=== PATIENT | male | born 1950 | race Caucasian/White ===

== ENCOUNTER 2016-10-17 04:03 | Inpatient (IN) | payer OTHER ==
[~2016-10-17] VITALS: Ht 177.8 cm; Wt 78.0 kg
[~2016-10-17 04:03] MED LIST: AMLO5TAB4 PO; ATOR20TA PO; DICL30AD3 PO; LEVO750T21 PO; LISI40TA4 PO; MORP15TA PO; POLY17PO4 PO; Valsartan PO; ZOLP5TAB2 PO
--- NOTE | 2016-10-17 04:10 | NUR ---
To bed 5 a 66 yo male bibra with c/o weakness and dizziness since he woke up. Patient is aaox3, reported to have been feeling numb on the left hand and face, and he "is too weak to walk." Patient appears anxious. Initiated comfort measures. tele monitoring in place. Gowned. at bedside for eval.
[2016-10-17] MEDS ORDERED: IV NS 0.9% 1,000 ML ONE ×2 (04:18→10:31)
[2016-10-17] MEDS ORDERED: IV SET PRIMARY 1 EA INFUS.SET MC ONE ×2 (04:18→10:31)
[2016-10-17] MEDS ORDERED: ONDANSETRON HCL/PF 4 MG/2 ML VIAL ONE (04:19)
[2016-10-17] MEDS ORDERED: LORAZEPAM INJ 2 MG/ML VIAL ONE (04:19)
[2016-10-17] MEDS ORDERED: MECLIZINE HCL 25 MG TABLET ONE (04:19)
[2016-10-17] MEDS ORDERED: LORAZEPAM INJ 2 MG/ML VIAL IV ONE (04:30)
[2016-10-17] MEDS ORDERED: ONDANSETRON HCL/PF 4 MG/2 ML VIAL IVP ONE (04:30)
[2016-10-17] MEDS ORDERED: IV NS 0.9% 1,000 ML BAG IV ONE ×2 (04:30→10:30)
[2016-10-17] MEDS ORDERED: MECLIZINE HCL 12.5 MG TABLET PO ONE (04:30)
--- NOTE | 2016-10-17 04:35 | NUR ---
Patient taken to ct.
[2016-10-17 04:56] LABS: BASOPHILS % (AUTO) 0.3 % (0.0-2.0); EOSINOPHILS # (AUTO) 0.1 /CMM (0.0-0.7); EOSINOPHILS % (AUTO) 0.8 % (0.0-6.0); HEMATOCRIT 42 % (39-51); HEMOGLOBIN 13.9 g/dL (13.5-17.5); LYMPHOCYTES # (AUTO) 3.3 /CMM (0.8-4.8); MEAN CORPUSCULAR HEMOGLOBIN 29 PG (26.0-33.0); MEAN CORPUSCULAR HGB CONC 33 g/dl (31.0-36.0); MEAN CORPUSCULAR VOLUME 87 fL (80-96); MONOCYTES # (AUTO) 1.3 /CMM (0.1-1.30); MONOCYTES % (AUTO) 11.3 % (2.0-12.0); NEUTROPHILS # (AUTO) 7.1 /CMM (1.8-8.9); NEUTROPHILS % (AUTO) 59.6 % (43.0-81.0); PLATELET COUNT (AUTO) 287 /CMM (150-450); RDW COEFFICIENT OF VARIATION 15.5 (11.5-15.0); RED BLOOD CELL COUNT(AUTO) 4.79 MIL/uL (4.5-6.0); WHITE BLOOD COUNT (AUTO) 11.9 K/uL (4.3-11.0)
[2016-10-17 05:06] LABS: INR 0.94 (0.87-1.13)
[2016-10-17 05:12] LABS: TROPONIN I < 0.017 ng/mL (0.00-0.056)
[2016-10-17 05:21] LABS: ALANINE AMINOTRANSFERASE 33 U/L (12-78); ALBUMIN 3.5 g/dL (3.4-5.0); ALKALINE PHOSPHATASE 74 U/L (46-116); ASPARTATE AMINOTRANSFERASE 18 U/L (15-37); BILIRUBIN,TOTAL 0.4 mg/dL (0.2-1.0); CALCIUM, SERUM 9.2 mg/dL (8.5-10.1); CREATININE 1.5 mg/dL (0.6-1.3); GLUCOSE 189 mg/dL (74-106); TOTAL PROTEIN, SERUM 7.4 g/dL (6.4-8.2); UREA NITROGEN, BLOOD 30 mg/dL (7-18)
[2016-10-17 05:26] LABS: CARBON DIOXIDE 25 mmol/L (21-32); CHLORIDE 103 mmol/L (98-107); SODIUM SERUM 141 mmol/L (136-145)
[2016-10-17 05:27] LABS: POTASSIUM 2.8 mmol/L (3.5-5.1)
[2016-10-17] MEDS ORDERED: POTASSIUM CHLORIDE 20 MEQ TAB.PRT.SR PO ONE ×2 (06:00→06:02)
--- NOTE | 2016-10-17 07:17 | NUR ---
patient is sleeping comfortably at this time. VSS.
--- NOTE | 2016-10-17 08:15 | NUR ---
Patient is resting comfortably in bed with eyes closed. Easily aroused. VSS
--- NOTE | 2016-10-17 09:00 | NUR ---
DR PHILIP QUAN
--- NOTE | 2016-10-17 09:11 | NUR ---
DR DAMIEN QUAN
--- NOTE | 2016-10-17 10:11 | NUR ---
TEXTED DR. PATINO FOR MRI APPROVAL.
--- NOTE | 2016-10-17 10:14 | NUR ---
PT ALERT, AWAKE AND ORIENTED. VSS.
[2016-10-17] MEDS ORDERED: LISI-603 PO (10:51)
[2016-10-17] MEDS ORDERED: ATOR80TA PO (10:51)
[2016-10-17] MEDS ORDERED: HYDR25TA4 PO (10:51)
[2016-10-17] MEDS ORDERED: ASPI81TA2 PO (10:51)
--- NOTE | 2016-10-17 11:07 | NUR ---
MORTGAGE LOAN CLOSER NOTES RECEIVED PATIENT FROM E.R. DEPARTMENT, UNDER THE CARE OF DR. QUEZADA, PATIENT STILL COMPLAINING OF DIZZINESS WHEN MOVING, AND BLURRY VISION. PATIENT PLACED ON TELE MONITOR, IVF FROM E.R. STILL INFUSING, PATIENT DENIES PAIN OR DISCOMFORT AT THIS TIME, SKIN DRY AND INTACT, ALL NEEDS ATTENDED, CALL LIGHT WITHIN REACH, WILL CONTINUE TO MONITOR.
[2016-10-17 12:00] VITALS: BP 146/79
--- NOTE | 2016-10-17 13:45 | NUR ---
SALES EXEC NOTES PATIENT WAS SEEN AND EXAMINED BY DR. QUEZADA [id number] STILL WAITING FOR ADMISSION ORDERS AT THIS TIME. PATIENT IS CURRENTLY AT RADIOLOGY FOR HIS MRA.
--- NOTE | 2016-10-17 14:50 | NUR ---
VISUALIZER NOTES PATIENT JUST CAME BACK FROM MRI. IN STABLE CONDITION.
[2016-10-17] MEDS: ASPIRIN EC 325 MG TABLET.DR PO SCH (15:27)
[2016-10-17 16:00] VITALS: BP 136/69
[2016-10-17] MEDS ORDERED: ACYC400T PO (18:17)
--- NOTE | 2016-10-17 18:49 | NUR ---
BATH MIX OPERATOR NOTES PATIENT IN BED, ALERT AND ORIENTED, STILL PREFERS TO HAVE HIS EYES CLOSED DUE TO DOUBLE VISION, PATIENT STILL COMPLAINING OF DIZZINESS WHEN HE MOVES, DISCUSSED HOME MEDS WITH DR. QUEZADA WITH ORDERS TO CONTINUE, BUT TO KEEP ASA 325MG AND LIPITOR 80MG, PATIENT ADDED ACYCLOVIR AND MD ALSO AGREED TO CONTINUE, ORDERS NOTED AND CARRIED OUT, CALL LIGHT PLACED WITHIN REACH, WILL ENDORSE TO HEARING AID MECHANIC FOR SILAS.
--- NOTE | 2016-10-17 19:15 | NUR ---
CUPOLA MELTER NOTES RECEIVED ON BED A/O X4,NO SOB,TO CONSUME IVF INFUSING ON RIGHT AC VIA IV PUMP,ENCOURAGED TO EAT DINNER FOOD.CLAIMED SHE STILL FEELING DIZZY WHEN HE MOVES,SITTING UP.ENCOURAGED TO USE CALL LIGHT FOR ASSISTANCE.WILL CONTINUE TO MONITOR STATUS.
[2016-10-17 20:00] VITALS: BP_SYST 148; BP_SYST 155; BP_DIAS 87
[2016-10-17 20:15] VITALS: BP 148/89
[2016-10-17] MEDS: ATORVASTATIN 40 MG TABLET PO SCH (21:12)
[2016-10-17] MEDS: LISINOPRIL (20MG) 20 MG TABLET PO SCH (21:13)
[2016-10-17 21:17] LABS: APPEARANCE,URINE CLEAR (CLEAR); BILIRUBIN,URINE NEGATIVE (NEGATIVE); BLOOD, URINE TRACE Ery/uL (NEGATIVE); COLOR,URINE YELLOW (YELLOW); KETONES,URINE NEGATIVE (NEGATIVE); LEUKOCYTE ESTERASE ,URINE NEGATIVE (NEGATIVE); NITRITE, URINE NEGATIVE (NEGATIVE); PROTEIN,URINE NEGATIVE (NEGATIVE); UGLUCOSE NEGATIVE (NEGATIVE); UROBILINOGEN,URINE 0.2 EU/dL (0.2)
[2016-10-17 21:25] LABS: BACTERIA,URINE None seen /HPF (None Seen); RBC,URINE 0-2 /HPF (0-2); SQUAMOUS EPITHELIAL CELL,UR None Seen /HPF (None Seen); WBC,URINE 0-2 /HPF (0-3)
--- NOTE | 2016-10-17 21:30 | NUR ---
CATERERS HELPER NOTES BP 148/89.LISINOPRIL 20MG PO GIVEN,ALONG WITH LIPITOR 80MG PO ORDERED.
[2016-10-17] MEDS ORDERED: ATORVASTATIN 40 MG TABLET PO SCH ×2 (22:00)
[2016-10-18] VITALS (8 sets, daily range): BP systolic 114–141; BP diastolic 52–90
--- NOTE | 2016-10-18 01:00 | NUR ---
MS RN NOTES SLEEPING AT THIS TIME,KEPT WARM AND COMFORTABLE.
--- NOTE | 2016-10-18 06:35 | NUR ---
ADMISSIONS SPECIALIST NOTES SLEPT WELL AT [facility],DIZZINESS EPISODE WHEN HE GETS UP FROM BED.BLOOD PRESSURE WITH IN NORMAL LIMITS.NOT IN ANY FORM OF DISTRESS,NEEDS ATTENDED.WILL ENDORSE TO DAY NURSE FOR SILAS.
--- NOTE | 2016-10-18 07:30 | NUR ---
MS RN RECEIVE DON BED, AWAKE,ALERT,ORIENTED X4,NOT IN ANY FORM OF DISTRESS, RESPIRATIONS EVEN AND UNLABORED,NO SOB NOTED, LUNGS ARE CLEAR,ABDOMEN SOFT,POSITIVE BOWEL SOUNDS, DENIES PAIN AT THIS TIME, WILL MONITOR PATIENT.
[2016-10-18 08:21] LABS: CHOLESTEROL 223 mg/dL (<200); HDL CHOLESTEROL 39 mg/dL (40-60); LDL 149 mg/dL (0-99); TRIGLYCERIDES 136 mg/dL (30-150)
[2016-10-18] MEDS ORDERED: ACYCLOVIR 200 MG CAPSULE PO PRN (09:00)
[2016-10-18] MEDS ORDERED: LISINOPRIL (20MG) 20 MG TABLET PO SCH (09:00)
--- NOTE | 2016-10-18 09:30 | NUR ---
MS RN WAS SEEN BY DR. PHILIP Richey/ ORDERS MADE AND CARRIED OUT.
[2016-10-18] MEDS: POTASSIUM CHLORIDE 20 MEQ TAB.PRT.SR PO SCH (09:47)
[2016-10-18] MEDS: LISINOPRIL (20MG) 20 MG TABLET PO SCH (09:49)
[2016-10-18] MEDS: HYDROCHLOROTHIAZIDE 25 MG TABLET PO SCH (09:49)
[2016-10-18] MEDS: ASPIRIN EC 325 MG TABLET.DR PO SCH (09:50)
--- NOTE | 2016-10-18 17:30 | NUR ---
MS RN WALKING ON HALLWAY,NO DISTRESS NOTED.
--- NOTE | 2016-10-18 19:30 | NUR ---
ELECTRONIC NEWS GATHERING EDITOR - INITIAL NOTES RECEIVED PATIENT FROM DAY NURSE. PATIENT IS ALERT AND ORIENTED X4. NO S/S OF SOB OR ANY DISCOMFORT NOTED. PATIENT WITH STEADY GAIT AND USES THE WALKER. DENIES ANY PAIN. NO SIGNIFICANT CHANGES NOTED. CALL LIGHT IS WITHIN REACH. WILL CONTINUE TO MONITOR PATIENT.
[2016-10-18] MEDS: ATORVASTATIN 40 MG TABLET PO SCH (21:15)
[2016-10-19] VITALS: BP 132/83
[2016-10-19 04:00] VITALS: BP 134/81
--- NOTE | 2016-10-19 06:38 | NUR ---
AUTOMOBILE CARPETS MOLDER - ENDING NOTES PATIENT REMAINS STABLE. SLEPT MOST OF THE NIGHT. TELE READING OF SR 61. BED IN LOW POSITION AND LOCKED. SIDERAILS X2 UP. NO SIGNIFICANT CHANGES NOTED AT THIS TIME. WILL ENDORSE TO MORNING NURSE FOR CONTINUITY OF CARE.
[2016-10-19 08:00] VITALS: BP 141/96
--- NOTE | 2016-10-19 08:00 | NUR ---
ASLEEP BUT AROUSABLE; A/0 X3; R EYE PATCH IN PLACE; STILL STATES DOUBLE VISION; DENIES ANY PAIN; WILL CONTINUE TO MONITOR.
[2016-10-19] MEDS: LISINOPRIL (20MG) 20 MG TABLET PO SCH (08:15)
[2016-10-19] MEDS: HYDROCHLOROTHIAZIDE 25 MG TABLET PO SCH (08:15)
[2016-10-19] MEDS: ASPIRIN EC 325 MG TABLET.DR PO SCH (08:15)
[2016-10-19] MEDS: POTASSIUM CHLORIDE 20 MEQ TAB.PRT.SR PO SCH (08:16)
--- NOTE | 2016-10-19 10:13 | NUR ---
RN NOTES; PATIENT AMBULATED IN HALLS WITH WALKER; STEADY BALANCED GAIT; SITTING UP IN CHAIR; EYE PATCH ROTATED TO L EYE; NO ACUTE DISTRESS AT THIS TIME; WILL CONTINUE TO MONITOR.
[2016-10-19 16:00] VITALS: BP 126/86
[2016-10-19] MEDS: SPIRONOLACTONE 25 MG TABLET PO SCH (16:08)
--- NOTE | 2016-10-19 16:12 | NUR ---
RN NOTES patient dangling at bedside; R eye patch in place; denies any discomfort at this time; will continue to monitor.
--- NOTE | 2016-10-19 18:00 | NUR ---
patient ambulating in halls with walker; steady balanced gait; denies any distress or discomfort; will inform PM nurse.
--- NOTE | 2016-10-19 19:30 | NUR ---
MS/NUCLEAR SPECTROSCOPIST; RECEIVED PT IN THE BATHROOM SAID VOIDED. NOTED WITH EYE PATCH ON RT EYE. HE SAID HE ALTERNATELY COVER HIS EYES WITH EYE PATCH. NO DOUBLE VISION AT THIS TIME.DENIES PAIN. HL IS OUT AND I TOLD THE PT I WILL REMOVE IT AND WILL PUT NEW IV LINE. BED ON LOWER POSITION AND LOCKED FOR SAFETY. SIDE RAILS UPPER PART OF BED UP FOR SAFETY. PT INSTRUCTED TO CALL FOR HELP AND CALL LIGHT WITHIN REACH.
[2016-10-19 20:00] VITALS: BP 125/85
--- NOTE | 2016-10-19 21:00 | NUR ---
MS/ELECTRIC METER INSPECTOR; NEW HL INSERTED ON LWA # 20 ANGIO CATH.
[2016-10-19] MEDS: ATORVASTATIN 40 MG TABLET PO SCH (21:29)
--- NOTE | 2016-10-20 07:00 | NUR ---
MS/OTHER SALES SUPPORT WORKER; PT SLEEP GOOD LAST NIGHT / SNORING. DENIES ANY PAIN. NO DIZZINESS NOR DOUBLE VISION. BREATHING NON LABORED. CONTINUE TO MONITOR. CALL LIGHT WITHIN REACH. WILL ENDORSE TO THE DAY SHIFT NURSE.
--- NOTE | 2016-10-20 07:30 | NUR ---
MS RN RECEIVED ON BED, AWAKE,ALERT,ORIENTED X4,NOT IN ANY FORM OF DISTRESS, RESPIRATIONS EVEN AND UNLABORED,NO SOB NOTED, PATIENT STILL WEARING EYE PATCH AT THIS TIME, ALL NEEDS ATTENDED.
[2016-10-20 08:00] VITALS: BP 124/70
--- NOTE | 2016-10-20 08:30 | NUR ---
MS CHU BREAKFAST SERVED DUE MEDS GIVEN,TOLERATED WELL.
[2016-10-20 09:31] VITALS: BP 124/70
[2016-10-20] MEDS: ASPIRIN EC 325 MG TABLET.DR PO SCH (09:31)
[2016-10-20] MEDS: SPIRONOLACTONE 25 MG TABLET PO SCH (09:31)
[2016-10-20] MEDS: LISINOPRIL (20MG) 20 MG TABLET PO SCH (09:31)
[2016-10-20] MEDS: POTASSIUM CHLORIDE 20 MEQ TAB.PRT.SR PO SCH (09:31)
--- NOTE | 2016-10-20 11:05 | NUR ---
MS RN RECEIVED A CALL FROM DR. QUEZADA'S OFFICE W/ ORDER TO DISCHARGE PATIENT HOME TODAY.
--- NOTE | 2016-10-20 14:00 | NUR ---
ms rn patient went off accompanied by neighbor, all needs attended.
== END 2016-10-20 14:40 | disposition home or self-care (01) | DRG 45 ==
LOC: ER 04:05 → TELE 10:54 → MED 10-19 10:43
PROVIDERS: ADMIT Internal Medicine; ATTEND Internal Medicine
DX: I63.8 Other cerebral infarction (principal); E66.01 Morbid (severe) obesity due to excess calories; N18.3 Chronic kidney disease, stage 3 (moderate); E78.5 Hyperlipidemia, unspecified; I12.9 Hypertensive chronic kidney disease with stage 1 through stage 4 chronic kidney disease, or unspecified chronic kidney disease; E26.9 Hyperaldosteronism, unspecified; I25.10 Atherosclerotic heart disease of native coronary artery without angina pectoris; R73.03 Prediabetes; Z79.899 Other long term (current) drug therapy; Z82.3 Family history of stroke; Z85.51 Personal history of malignant neoplasm of bladder; Z88.0 Allergy status to penicillin; M19.90 Unspecified osteoarthritis, unspecified site; Z68.24 Body mass index [BMI] 24.0-24.9, adult; H53.2 Diplopia
CPT/HCPCS: 36415; 70450-TC; 70544-TC; 70547-TC; 70551-TC; 80048-TC; 80061-TC; 80076-TC; 80305; 81000-TC; 83735-TC; 84443-TC; 84484-TC; 85025-TC; 85652-TC; 85730-TC; 86592; 87081-TC; 93307-TC; 97001-TC; A4606; J2060; J2405; J7030; J8597; Z7610

== ENCOUNTER 2018-05-22 15:54 | Emergency (ER) | payer MEDICARE, OTHER ==
[~2018-05-22] VITALS: Ht 185.4 cm; Wt 99.8 kg
[~2018-05-22 15:54] MED LIST changes: +ACYC400T PO; -AMLO5TAB4 PO; +ASPI-1169 PO; -ATOR20TA PO; +ATOR80TA PO; -DICL30AD3 PO; +HYDR25TA4 PO; -LEVO750T21 PO; +LISI-603 PO; -LISI40TA4 PO; -MORP15TA PO; -POLY17PO4 PO; -Valsartan PO; -ZOLP5TAB2 PO
[2018-05-22] MEDS ORDERED: IV NS 0.9% 1,000 ML BAG IV ONE ×2 (16:30→17:30)
[2018-05-22 16:45] LABS: BASOPHILS # (AUTO) 0.2 /CMM (0.0-0.2); BASOPHILS % (AUTO) 1.3 % (0.0-2.0); EOSINOPHILS % (AUTO) 0.2 % (0.0-6.0); HEMATOCRIT 46 % (39-51); HEMOGLOBIN 15.5 g/dL (13.5-17.5); LYMPHOCYTES % (AUTO) 16.1 % (20.0-44.0); MEAN CORPUSCULAR HGB CONC 34 g/dl (31.0-36.0); MEAN CORPUSCULAR VOLUME 95 fL (80-96); MONOCYTES # (AUTO) 0.9 /CMM (0.1-1.30); MONOCYTES % (AUTO) 7.7 % (2.0-12.0); NEUTROPHILS # (AUTO) 9.2 /CMM (1.8-8.9); NEUTROPHILS % (AUTO) 74.7 % (43.0-81.0); PLATELET COUNT (AUTO) 205 /CMM (150-450); RED BLOOD CELL COUNT(AUTO) 4.77 MIL/uL (4.5-6.0); WHITE BLOOD COUNT (AUTO) 12.3 K/uL (4.3-11.0)
[2018-05-22 16:52] LABS: CALCIUM, SERUM 9.6 mg/dL (8.5-10.1); CARBON DIOXIDE 28 mmol/L (21-32); CHLORIDE 102 mmol/L (98-107); CREATININE 2.1 mg/dL (0.6-1.3); GLUCOSE 87 mg/dL (74-106); POTASSIUM 3.9 mmol/L (3.5-5.1); SODIUM SERUM 140 mmol/L (136-145); UREA NITROGEN, BLOOD 61 mg/dL (7-18)
[2018-05-22 16:57] LABS: ALANINE AMINOTRANSFERASE 26 U/L (12-78); ALBUMIN 3.6 g/dL (3.4-5.0); ALKALINE PHOSPHATASE 65 U/L (46-116); ASPARTATE AMINOTRANSFERASE 17 U/L (15-37); BILIRUBIN,DIRECT 0.3 mg/dL (0.0-0.2); BILIRUBIN,TOTAL 1.3 mg/dL (0.2-1.0); TOTAL PROTEIN, SERUM 7.4 g/dL (6.4-8.2)
--- NOTE | 2018-05-22 16:58 | NUR ---
PT BIB RA C/O PRE-SYNCOPE PULPING MACHINE OPERATOR S/P SWIMMING. PT STATES HE GOT DIZZY AND FEELS LIKE HE WAS GOING TO PASS OUT BUT DID NOT LOSE CONSCIOUSNESS. NO TRAUMA NOTED. RESP EVEN UNLABORED. PERRLA. NO NEURO DEFICITS. PT STATES HE CALLED HIS PMD AND PMD TOLD HIM TO COME D/T HYPOTENSION AND DIZZINESS. SKIN WARM DRY. IN ER BED 15 ON MONITOR.
--- NOTE | 2018-05-22 17:55 | NUR ---
RESTING QUIETLY, NAD NOTED. WILL DC AFTER SECOND IV BOLUS COMPLETES.
--- NOTE | 2018-05-22 19:14 | NUR ---
DPatient discharged to home in stable condition. Written and verbal after care instructions given. Patient verbalizes understanding of instruction. IV removed. Catheter intact and site benign. Pressure and 4x4 applied to site. No bleeding noted.
[2018-05-22 19:15] VITALS: BP 124/71
== END 2018-05-22 19:15 | disposition home or self-care (01) ==
LOC: ER 15:55
DX: E86.0 Dehydration (principal); N28.9 Disorder of kidney and ureter, unspecified; I10 Essential (primary) hypertension; R42 Dizziness and giddiness; Z86.73 Personal history of transient ischemic attack (TIA), and cerebral infarction without residual deficits; Z85.51 Personal history of malignant neoplasm of bladder; Z85.54 Personal history of malignant neoplasm of ureter; Z90.5 Acquired absence of kidney; Z88.0 Allergy status to penicillin; Z79.82 Long term (current) use of aspirin
CPT/HCPCS: 36415; 70450; 71045; 80048; 80076; 84484; 85025; 93005; 96360; 96361; 99284; A4606; J7030 ×2; Z7610

== ENCOUNTER 2019-11-13 11:26 | Outpatient (CLI) | payer MEDICARE, OTHER ==
[2019-11-13 13:53] LABS: APPEARANCE,URINE SL CLOUDY (CLEAR); BASOPHILS % (AUTO) 0.4 % (0.0-2.0); BILIRUBIN,URINE NEGATIVE (NEGATIVE); BLOOD, URINE SMALL Ery/uL (NEGATIVE); COLOR,URINE YELLOW (YELLOW); EOSINOPHILS % (AUTO) 0.1 % (0.0-6.0); HEMATOCRIT 47 % (39-51); HEMOGLOBIN 15.5 g/dL (13.5-17.5); KETONES,URINE NEGATIVE (NEGATIVE); LEUKOCYTE ESTERASE ,URINE NEGATIVE (NEGATIVE); LYMPHOCYTES # (AUTO) 2.1 /CMM (0.8-4.8); LYMPHOCYTES % (AUTO) 24.6 % (20.0-44.0); MEAN CORPUSCULAR HGB CONC 33 g/dl (31.0-36.0); MEAN CORPUSCULAR VOLUME 94 fL (80-96); MONOCYTES # (AUTO) 0.9 /CMM (0.1-1.30); MONOCYTES % (AUTO) 10.7 % (2.0-12.0); NEUTROPHILS # (AUTO) 5.6 /CMM (1.8-8.9); NEUTROPHILS % (AUTO) 64.2 % (43.0-81.0); NITRITE, URINE NEGATIVE (NEGATIVE); PH,URINE 5.5 (5.0-8.0); PLATELET COUNT (AUTO) 206 /CMM (150-450); PROTEIN,URINE NEGATIVE (NEGATIVE); RED BLOOD CELL COUNT(AUTO) 4.96 MIL/uL (4.5-6.0); UGLUCOSE NEGATIVE (NEGATIVE); UROBILINOGEN,URINE 0.2 EU/dL (0.2); WHITE BLOOD COUNT (AUTO) 8.7 K/uL (4.3-11.0)
[2019-11-13 14:54] LABS: ALBUMIN 3.9 g/dL (3.4-5.0); BILIRUBIN,TOTAL 0.6 mg/dL (0.2-1.0); CALCIUM, SERUM 9.8 mg/dL (8.5-10.1); CREATININE 1.6 mg/dL (0.6-1.3); POTASSIUM 4.5 mmol/L (3.5-5.1)
[2019-11-13 15:10] LABS: BACTERIA,URINE None seen /HPF (None Seen); SQUAMOUS EPITHELIAL CELL,UR Few /HPF (None Seen); WBC,URINE 0-2 /HPF (0-3)
== END 2019-11-13 23:59 | disposition home or self-care (01) ==
LOC: LAB 11:26
PROVIDERS: ATTEND Internal Medicine
DX: Z01.812 Encounter for preprocedural laboratory examination (principal); M46.04 Spinal enthesopathy, thoracic region
CPT/HCPCS: 36415; 71046; 80053-TC; 81000-TC; 85025-TC; 85610-TC; 85730-TC

== ENCOUNTER 2020-10-19 11:21 | Outpatient (CLI) | payer MEDICARE, OTHER ==
[~2020-10-19 11:21] MED LIST changes: -ACYC400T PO; +ACYC400T19 PO; -LISI-603 PO; +LISI20TA30 PO
[2020-10-19 13:18] LABS: BASOPHILS % (AUTO) 0.4 % (0.0-2.0); EOSINOPHILS % (AUTO) 0.6 % (0.0-6.0); HEMATOCRIT 50 % (39-51); HEMOGLOBIN 16.8 g/dL (13.5-17.5); LYMPHOCYTES # (AUTO) 1.9 /CMM (0.8-4.8); LYMPHOCYTES % (AUTO) 22.8 % (20.0-44.0); MEAN CORPUSCULAR HGB CONC 33 g/dl (31.0-36.0); MEAN CORPUSCULAR VOLUME 96 fL (80-96); MONOCYTES % (AUTO) 11.8 % (2.0-12.0); NEUTROPHILS # (AUTO) 5.3 /CMM (1.8-8.9); NEUTROPHILS % (AUTO) 64.4 % (43.0-81.0); PLATELET COUNT (AUTO) 205 /CMM (150-450); RED BLOOD CELL COUNT(AUTO) 5.24 MIL/uL (4.5-6.0); WHITE BLOOD COUNT (AUTO) 8.3 K/uL (4.3-11.0)
[2020-10-19 13:36] LABS: BILIRUBIN,URINE NEGATIVE (NEGATIVE); COLOR,URINE STRAW (YELLOW); LEUKOCYTE ESTERASE ,URINE NEGATIVE (NEGATIVE); NITRITE, URINE NEGATIVE (NEGATIVE); PH,URINE 6.5 (5.0-8.0); PROTEIN,URINE NEGATIVE (NEGATIVE); UGLUCOSE NEGATIVE (NEGATIVE); UROBILINOGEN,URINE 0.2 EU/dL (0.2)
[2020-10-19 13:48] LABS: BACTERIA,URINE Rare /HPF (None Seen); RBC,URINE 0-3 /HPF (0-2); SQUAMOUS EPITHELIAL CELL,UR Rare /HPF (None Seen); WBC,URINE 0-2 /HPF (0-3)
[2020-10-19 14:03] LABS: ALBUMIN 3.8 g/dL (3.4-5.0); BILIRUBIN,TOTAL 0.5 mg/dL (0.2-1.0); CALCIUM, SERUM 9.8 mg/dL (8.5-10.1); CREATININE 1.4 mg/dL (0.6-1.3); POTASSIUM 4.5 mmol/L (3.5-5.1); TOTAL PROTEIN, SERUM 7.6 g/dL (6.4-8.2)
== END 2020-10-19 23:59 | disposition home or self-care (01) ==
LOC: LAB 11:21
PROVIDERS: ATTEND Internal Medicine
DX: Z01.818 Encounter for other preprocedural examination (principal); R79.89 Other specified abnormal findings of blood chemistry; R79.1 Abnormal coagulation profile; R82.90 Unspecified abnormal findings in urine; R68.89 Other general symptoms and signs; M17.11 Unilateral primary osteoarthritis, right knee; M47.814 Spondylosis without myelopathy or radiculopathy, thoracic region; I49.3 Ventricular premature depolarization
CPT/HCPCS: 36415; 71046; 80053-TC; 81001; 85025-TC; 85610-TC; 85730-TC

== ENCOUNTER 2022-04-23 11:19 | Emergency (ER) | payer MEDICARE, OTHER ==
[~2022-04-23] VITALS: Ht 185.4 cm; Wt 113.4 kg
--- NOTE | 2022-04-23 11:30 | NUR ---
R thigh pain w/ noted swelling x 1 week s/p im testosterone injection. Patient is AAOX4. Able to make needs known. Placed comfortably in bed. Vitals checked.
--- NOTE | 2022-04-23 11:49 | NUR ---
Seen by Dr Rodriguez at bedside
[2022-04-23 12:04] VITALS: BP 146/88
--- NOTE | 2022-04-23 12:04 | NUR ---
Patient discharged to home in stable condition. Written and verbal after care instructions given. Patient verbalizes understanding of instruction.
== END 2022-04-23 12:06 | disposition home or self-care (01) ==
LOC: ER 11:22
DX: S70.11XA Contusion of right thigh, initial encounter (principal); I10 Essential (primary) hypertension; M19.90 Unspecified osteoarthritis, unspecified site; Z90.5 Acquired absence of kidney; Z88.0 Allergy status to penicillin; Z60.2 Problems related to living alone; Z79.899 Other long term (current) drug therapy; X58.XXXA Exposure to other specified factors, initial encounter; Y93.89 Activity, other specified; Y92.89 Other specified places as the place of occurrence of the external cause; Y99.8 Other external cause status

== ENCOUNTER 2022-07-11 11:22 | Outpatient (CLI) | payer MEDICARE, OTHER | END 2022-07-11 23:59 | disposition home or self-care (01) | LOC: RAD 11:22 | PROVIDERS: ATTEND Internal Medicine | DX: Z01.818 Encounter for other preprocedural examination (principal) | CPT/HCPCS: 71045-TC ==

== ENCOUNTER → 2022-07-18 | Outpatient (CLI) | payer MEDICARE, OTHER ==
[2022-07-18 14:54] LABS: CALCIUM, SERUM 9.3 mg/dL (8.5-10.1); CREATININE 1.5 mg/dL (0.6-1.3); POTASSIUM 4.5 mmol/L (3.5-5.1)
== END | disposition home or self-care (01) ==
LOC: LAB 13:32
PROVIDERS: ATTEND Internal Medicine
DX: Z01.812 Encounter for preprocedural laboratory examination (principal)
CPT/HCPCS: 36415; 80048-TC

== ENCOUNTER 2022-10-12 15:31 | Emergency (ER) | payer MEDICARE, OTHER ==
[~2022-10-12] VITALS: Ht 185.4 cm; Wt 119.3 kg
[2022-10-12] MEDS ORDERED: IOHEXOL-350 100 ML VIAL IV ONE (15:52)
[2022-10-12] MEDS ORDERED: CT SWABBABLE VALVE TRANS SET 1 EA INFUS.SET MC ONE (15:53)
[2022-10-12] MEDS ORDERED: IV NS 0.9% 250 ML IV ONE (15:53)
[2022-10-12 15:58] LABS: BASOPHILS # (AUTO) 0.1 K/uL (0.0-0.2); BASOPHILS % (AUTO) 0.6 % (0.0-2.0); EOSINOPHILS % (AUTO) 0.3 % (0.0-6.0); HEMATOCRIT 39 % (39-51); HEMOGLOBIN 12.6 g/dL (13.5-17.5); LYMPHOCYTES # (AUTO) 1.9 K/uL (0.8-4.8); LYMPHOCYTES % (AUTO) 21.9 % (20.0-44.0); MEAN CORPUSCULAR HGB CONC 33 g/dl (31.0-36.0); MEAN CORPUSCULAR VOLUME 93 fL (80-96); MONOCYTES # (AUTO) 0.8 K/uL (0.1-1.30); NEUTROPHILS # (AUTO) 5.9 K/uL (1.8-8.9); NEUTROPHILS % (AUTO) 68.2 % (43.0-81.0); PLATELET COUNT (AUTO) 242 K/uL (150-450); RED BLOOD CELL COUNT(AUTO) 4.14 MIL/uL (4.5-6.0); WHITE BLOOD COUNT (AUTO) 8.7 K/uL (4.3-11.0)
[2022-10-12] MEDS ORDERED: IV NS 0.9% 1,000 ML BAG IV ONE (16:00)
[2022-10-12 16:16] LABS: ALANINE AMINOTRANSFERASE 38 U/L (12-78); ALBUMIN 3.8 g/dL (3.4-5.0); ALKALINE PHOSPHATASE 96 U/L (46-116); ASPARTATE AMINOTRANSFERASE 29 U/L (15-37); BILIRUBIN,DIRECT 0.2 mg/dL (0.0-0.2); BILIRUBIN,TOTAL 0.6 mg/dL (0.2-1.0); CALCIUM, SERUM 9.4 mg/dL (8.5-10.1); CARBON DIOXIDE 25 mmol/L (21-32); CHLORIDE 101 mmol/L (98-107); CREATININE 2.2 mg/dL (0.6-1.3); GLUCOSE 111 mg/dL (74-106); SODIUM SERUM 137 mmol/L (136-145); TOTAL PROTEIN, SERUM 7.1 g/dL (6.4-8.2); UREA NITROGEN, BLOOD 42 mg/dL (7-18)
--- NOTE | 2022-10-12 16:45 | NUR ---
pt returned from CT. Fluids started on RAC 20g
--- NOTE | 2022-10-12 16:45 | NUR ---
Gene for Tele Neuro to see pt
[2022-10-12 19:36] VITALS: BP 114/67
== END 2022-10-12 19:39 | disposition home or self-care (01) ==
LOC: ER 15:51
DX: H53.8 Other visual disturbances (principal); N18.9 Chronic kidney disease, unspecified; E86.0 Dehydration; R42 Dizziness and giddiness; Z86.73 Personal history of transient ischemic attack (TIA), and cerebral infarction without residual deficits; I10 Essential (primary) hypertension; Z98.890 Other specified postprocedural states; Z88.0 Allergy status to penicillin; Z60.2 Problems related to living alone; Z79.82 Long term (current) use of aspirin; Z79.899 Other long term (current) drug therapy
CPT/HCPCS: 99285; 70498; 96360; 71045; 96361; 93005; 70496; 85025; 80048; 83605 ×2; 80076; 36415; 84484 ×2; 85730; 86850; 82962; 70450; J7030; J7050; Q9967

== ENCOUNTER 2023-08-13 12:19 | Emergency (ER) | payer MEDICARE, OTHER ==
[~2023-08-13] VITALS: Ht 185.4 cm; Wt 59.9 kg
[2023-08-13 12:29] VITALS: BP 110/97; TEMP 98.7; O2SAT 95
[2023-08-13] MEDS ORDERED: QUET25TA PO (13:15)
[2023-08-13] MEDS ORDERED: DIVA-76 PO (13:15)
[2023-08-13] MEDS ORDERED: MESA1.2T3 PO (13:15)
[2023-08-13] MEDS ORDERED: MIRT-90 PO (13:15)
[2023-08-13] MEDS ORDERED: MELA5TAB PO (13:15)
[2023-08-13 13:31] LABS: BASOPHILS # (AUTO) 0.1 K/uL (0.0-0.2); BASOPHILS % (AUTO) 0.6 % (0.0-2.0); EOSINOPHILS % (AUTO) 0.4 % (0.0-6.0); HEMATOCRIT 39 % (39-51); LYMPHOCYTES # (AUTO) 2.7 K/uL (0.8-4.8); LYMPHOCYTES % (AUTO) 24.2 % (20.0-44.0); MEAN CORPUSCULAR HEMOGLOBIN 32 PG (26.0-33.0); MEAN CORPUSCULAR HGB CONC 33 g/dl (31.0-36.0); MEAN CORPUSCULAR VOLUME 97 fL (80-96); MONOCYTES # (AUTO) 0.9 K/uL (0.1-1.30); MONOCYTES % (AUTO) 8.3 % (2.0-12.0); NEUTROPHILS # (AUTO) 7.3 K/uL (1.8-8.9); NEUTROPHILS % (AUTO) 66.5 % (43.0-81.0); PLATELET COUNT (AUTO) 410 K/uL (150-450); RED BLOOD CELL COUNT(AUTO) 4.03 MIL/uL (4.5-6.0); RED CELL DISTRIBUTION WIDTH 13.9 % (11.5-15.0)
[2023-08-13 13:36] LABS: APPEARANCE,URINE CLEAR (CLEAR); BILIRUBIN,URINE NEGATIVE (NEGATIVE); BLOOD, URINE NEGATIVE Ery/uL (NEGATIVE); COLOR,URINE YELLOW (YELLOW); KETONES,URINE TRACE mg/dL (NEGATIVE); LEUKOCYTE ESTERASE ,URINE NEGATIVE (NEGATIVE); NITRITE, URINE NEGATIVE (NEGATIVE); PH,URINE 6.5 (5.0-8.0); PROTEIN,URINE NEGATIVE (NEGATIVE); UGLUCOSE NEGATIVE (NEGATIVE); UROBILINOGEN,URINE 0.2 EU/dL (0.2)
[2023-08-13 13:40] LABS: ADD URINE CULTURE NO; BACTERIA,URINE Rare /HPF (None Seen); RBC,URINE 0-2 /HPF (0-2); SQUAMOUS EPITHELIAL CELL,UR Few /HPF (None Seen); WBC,URINE 0-2 /HPF (0-3)
[2023-08-13 13:41] LABS: CALCIUM, SERUM 8.9 mg/dL (8.5-10.1); CARBON DIOXIDE 32 mmol/L (21-32); CHLORIDE 98 mmol/L (98-107); CREATININE 0.7 mg/dL (0.6-1.3); GLUCOSE 113 mg/dL (74-106); INR 1.08 (0.91-1.10); PARTIAL THROMBOPLASTIN TIME 29.3 SEC (24.3-34.3); POTASSIUM 4.2 mmol/L (3.5-5.1); PROTHROMBIN TIME 11.4 SECS (9.2-11.1); SODIUM SERUM 137 mmol/L (136-145); UREA NITROGEN, BLOOD 16 mg/dL (7-18)
[2023-08-13 13:47] LABS: ALANINE AMINOTRANSFERASE 15 U/L (12-78); ALBUMIN 2.9 g/dL (3.4-5.0); ALKALINE PHOSPHATASE 77 U/L (46-116); ASPARTATE AMINOTRANSFERASE 11 U/L (15-37); BILIRUBIN,DIRECT 0.1 mg/dL (0.0-0.2); BILIRUBIN,TOTAL 0.4 mg/dL (0.2-1.0); TOTAL PROTEIN, SERUM 7.6 g/dL (6.4-8.2)
[2023-08-13] MEDS: VANCOMYCIN 1 GM in IV D5W 250 ML IV ONE (13:58)
[2023-08-13] MEDS: AZTREONAM 2 G in IV NS 0.9% 100 ML IV ONE (13:58)
[2023-08-13 14:27] LABS: LACTIC ACID 1.9 mmol/L (0.4-2.0)
== END 2023-08-13 15:15 ==
LOC: ER 12:28
DX: F03.90 Unspecified dementia, unspecified severity, without behavioral disturbance, psychotic disturbance, mood disturbance, and anxiety (principal); I10 Essential (primary) hypertension; M19.90 Unspecified osteoarthritis, unspecified site; Z88.0 Allergy status to penicillin; Z60.2 Problems related to living alone
CPT/HCPCS: 36415; 70450-TC; 71045-TC; 80048-TC; 80076-TC; 81001; 83605-TC; 84484-TC; 85025-TC; 85730-TC; 87040-TC; 87086-TC; J3370; J3490; J7030; J7060

== ENCOUNTER 2024-01-08 12:02 | Emergency (ER) | payer MEDICARE, OTHER ==
[~2024-01-08] VITALS: Ht 182.9 cm; Wt 108.9 kg
[~2024-01-08 12:02] MED LIST changes: -ACYC400T19 PO; -ASPI-1169 PO; -ATOR80TA PO; +DIVA-76 PO; -HYDR25TA4 PO; -LISI20TA30 PO; +MELA5TAB PO; +MESA1.2T3 PO; +MIRT-90 PO; +QUET25TA PO
[2024-01-08 12:54] VITALS: BP 126/76; TEMP 97.7; O2SAT 98
[2024-01-08] MEDS ORDERED: CEPH500C2 PO (14:31)
== END 2024-01-08 14:37 | disposition home or self-care (01) ==
LOC: ER 12:09
DX: L03.116 Cellulitis of left lower limb (principal); I10 Essential (primary) hypertension; M17.0 Bilateral primary osteoarthritis of knee; Z90.5 Acquired absence of kidney; Z88.0 Allergy status to penicillin; Z85.9 Personal history of malignant neoplasm, unspecified; Z60.2 Problems related to living alone
CPT/HCPCS: 73660-TC